=== PATIENT | female | born 1965 | race American Indian/Alaskan Native ===

== ENCOUNTER 2016-11-07 06:59 | Emergency (ER) | payer OTHER, MEDICAID ==
[2016-11-07 07:06] VITALS: BP 135/77; PULSE 98; RESP 18; TEMP 98.2; O2SAT 96
--- NOTE | 2016-11-07 07:37 | EDPHY ---
H & P Time Seen by Provider: 11/07/16 07:14 HPI/ROS: CHIEF COMPLAINT: Right lower extremity swelling HISTORY OF PRESENT ILLNESS: 51-year-old female with a history of clotting disorder presents with right lower extremity swelling. She noticed erythema and tenderness on the anterior aspect of her right lower leg yesterday. Recently she has had frequent superficial thrombophlebitis. History DVT in the past; previously took Coumadin for 4 years. No anticoagulants now. REVIEW OF SYSTEMS: Constitutional: No fever, no chills Eyes: No visual changes ENT: No sore throat Respiratory: No cough, no shortness of breath Cardiac: No chest pain Gastrointestinal: No nausea, no vomiting, no abdominal pain Genitourinary: No hematuria, no dysuria Skin: No rash Neurological: No headache, no numbness, no weakness Psychiatric: Anxiety Past Medical/Surgical History: Clotting disorder DVT Anxiety Social History: Smoking Status: Current every day smoker Physical Exam: General Appearance: Alert, quite anxious Eyes: Pupils equal and round, no conjunctival pallor ENT, Mouth: Mucous membranes moist Neck: Normal inspection Respiratory: Lungs are clear to auscultation Cardiovascular: Regular rate and rhythm Gastrointestinal: Abdomen is soft and nontender Neurological: A&O, nonfocal, normal gait Skin: Warm and dry Extremities: right lower extremity-multiple varicosities, on the anterior aspect of the mid leg, there is a 2 cm linear area of erythema and tenderness, mild calf tenderness, which the patient states is chronic Psychiatric: Anxious Constitutional: Initial Vital Signs Temperature (C) 36.8 C 11/07/16 07:03 Heart Rate 98 11/07/16 07:03 Respiratory Rate 18 11/07/16 07:03 Blood Pressure 135/77 H 11/07/16 07:03 O2 Sat (%) 96 11/07/16 07:03 O2 Delivery Mode Room Air Allergies/Adverse Reactions: No Known Allergies Allergy (Verified 11/07/16 07:01) Home Medications: Medication Instructions Recorded NK [No Known Home Meds] 11/07/16 Medical Decision Making ED Course/Re-evaluation: This patient left prior to getting the right lower extremity ultrasound. The ED RN called the patient and we both talked with the pt. She decided that she did not need the ultrasound. I encouraged her to return to the emergency department for evaluation at any time. Departure - Departure Disposition: Home, Routine, Self-Care Clinical Impression: Superficial thrombophlebitis Qualifiers: Superficial thrombophlebitis-Involved body area: lower extremity Laterality: right Qualified Code(s): I80.01 - Phlebitis and thrombophlebitis of superficial vessels of right lower extremity Condition: Good Referrals: Pattie Bettencourt MD [Primary Care Provider] - As per Instructions
== END 2016-11-07 07:30 | disposition home or self-care (01) ==
DX: I80.01 Phlebitis and thrombophlebitis of superficial vessels of right lower extremity (principal); F17.200 Nicotine dependence, unspecified, uncomplicated; Z86.718 Personal history of other venous thrombosis and embolism

== ENCOUNTER 2017-10-09 14:37 | Emergency (ER) | payer OTHER, MEDICAID ==
[2017-10-09 14:43] VITALS: BP 126/74; PULSE 95; RESP 20; TEMP 98.6; O2SAT 95
== END 2017-10-09 15:08 | disposition left against medical advice (07) ==
DX: Z53.21 Procedure and treatment not carried out due to patient leaving prior to being seen by health care provider (principal)

== ENCOUNTER → 2017-12-17 | Outpatient (CLI) | payer OTHER, MEDICAID | LOC: FIMAGING 19:03 | DX: M47.893 Other spondylosis, cervicothoracic region (principal); M48.02 Spinal stenosis, cervical region; M53.83 Other specified dorsopathies, cervicothoracic region; M47.896 Other spondylosis, lumbar region; M53.87 Other specified dorsopathies, lumbosacral region ==

== ENCOUNTER 2018-09-19 02:17 | Observation (INO) | payer OTHER, MEDICAID ==
[2018-09-19] MEDS ORDERED: IPRATROPIUM/ALBUTEROL 3 ML DEYVIAL IH ONE (02:43)
[2018-09-19] MEDS ORDERED: NS 1,000 ML IV ONE (04:10)
[2018-09-19] MEDS ORDERED: LIDOCAINE 4% 5 ML AMP IH ONE (04:10)
[2018-09-19] MEDS ORDERED: IOPAMIDOL (ISOVUE 370) 100 ML BTL IV ONE (04:15)
[2018-09-19] MEDS ORDERED: LIDOCAINE HCL 4% TOPICAL SOLN 50ML ONE (04:30)
[2018-09-19] MEDS ORDERED: LORazepam 2 MG/ML INJ IVP ONE (04:43)
[2018-09-19] MEDS ORDERED: methylPREDNISolone SOD SUCC 125 MG/2 ML VIAL IVP ONE (05:05)
--- NOTE | 2018-09-19 05:30 | EDPHY ---
H & P Stated Complaint: difficulty breathing, rash all over Time Seen by Provider: 09/19/18 03:52 HPI/ROS: HPI The patient presents with dry cough which has been present for the last 5 days which started slowly and has gotten progressively worse and is dry and hacking. This is caused her to lose her voice. When she walks at all, she feels short of breath. She does not have a fever. She does not have any chest pain. She reports decreased p.o. Intake over the last 1 week. She does not have a sore throat. She did not have a flu vaccine this year. She is a 1 pack per day cigarette smoker. She reports a history of some sort of lung cancer which was cured by natural treatments about 2 years ago. She reports a rash on her arms, legs, buttocks which she relates to her cough. REVIEW OF SYSTEMS 10 systems were reviewed and negative with the exception of the elements mentioned in the history of present illness. 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, chronic depression, ADD, chronic pain, Klippel-Trenaunay syndrome Soc Hx: 1 pack per day cigarette smoker, here with her boyfriend PHYSICAL General Appearance: Alert, no distress, voice is hoarse Eyes: Pupils equal and round no pallor or injection ENT, Mouth: Mucous membranes moist Respiratory: Hacking continuous cough, There are no retractions, lungs are clear to auscultation Cardiovascular: Regular rate and rhythm Gastrointestinal: Abdomen is soft and non-tender, no masses, bowel sounds normal Neurological: A&O, moves all extremities Skin: Warm and dry, buttocks, upper back, arms, posterior surfaces of legs have diffusely erythematous dry rash Musculoskeletal: Neck is supple non tender Extremities: symmetrical, full range of motion Psychiatric: Patient is oriented X 3, there is no agitation Source: Patient Exam Limitations: No limitations - Personal History LMP (Females 10-55): Unknown Current Tetanus/Diphtheria Vaccine: Yes Tetanus Vaccine Date: 2006 - Medical/Surgical History Hx Asthma: No Hx Chronic Respiratory Disease: No Hx Diabetes: No Hx Cardiac Disease: No Hx Renal Disease: No Hx Cirrhosis: No Hx Alcoholism: No Hx HIV/AIDS: No Hx Splenectomy or Spleen Trauma: No Other PMH: KLIPPEL TRENAUNAY SHERON SYNDROME, BILIARY BYPASS, PANCRETITIS, 19 ENDOSCOPYS ? PER PT, CVA, NM, PE, Sissy, Knee surg, L hip replacement x 2, cspine surg - Social History Smoking Status: Current every day smoker Constitutional: Initial Vital Signs Temperature (C) 36.9 C 09/19/18 02:32 Heart Rate 93 09/19/18 02:32 Respiratory Rate 24 H 09/19/18 02:32 Blood Pressure 120/91 H 09/19/18 02:32 O2 Sat (%) 97 09/19/18 02:32 O2 Delivery Mode Room Air Allergies/Adverse Reactions: No Known Allergies Allergy (Verified 10/09/17 14:41) Home Medications: Medication Instructions Recorded NK [No Known Home Meds] 11/07/16 Medical Decision Making - Diagnostics Imaging Results: CT chest with IV contrast demonstrates multifocal ground-glass infiltrates bilaterally with upper lobe predominance, mild bronchiectasis, consider acute interstitial pneumonia, interpreted by direct radiology Chest x-ray two view shows bilateral infiltrates, interpreted by me, radiology interpretation is pending. Differential Diagnosis: 52-year-old female with multiple medical problems including Klippel-Trenaunay syndrome, reported history of adenocarcinoma of the lungs treated with natural therapies, laryngeal tumor status post treatment with chemotherapy, chronic pain , chronic depression and attention deficit hyperactivity disorder presents from home with 5 days of progressive cough associated with shortness of breath. Here , her pulse ox is normal that she has a severe dry cough which is hacking. She is occasionally short of breath in the room. Chest x-ray is performed and demonstrates bilateral infiltrates. Labs are generally unremarkable. Patient is given IV fluids per her request. Given chest x-ray findings, I have ordered CT scan of her chest for further delineation of these infiltrates. It appears that she may have acute interstitial pneumonia. Because of this I will treat her with Solu-Medrol, antibiotics. Basic labs are unremarkable. I plan to admit her to the hospitalist service. I have discussed the case with Dr. Alan. - Data Points Laboratory Results: Laboratory Results 09/19/18 03:10 09/19/18 03:10 09/19/18 09/19/18 09/19/18 04:00 03:10 03:10 WBC REJ RBC REJ Hgb REJ Hct REJ MCV REJ MCH REJ MCHC REJ RDW REJ Plt Count REJ MPV REJ Neut % (Auto) REJ Lymph % (Auto) REJ [place] % (Auto) REJ Eos % (Auto) REJ Baso % (Auto) REJ Nucleat RBC Rel Count REJ Absolute Neuts (auto) REJ Absolute Lymphs (auto) REJ Absolute Monos (auto) REJ Absolute Eos (auto) REJ Absolute Basos (auto) REJ Absolute Nucleated RBC REJ Immature Gran % REJ Immature Gran # REJ Sodium 134 mEq/L L mEq/L (135-145) Potassium 3.3 mEq/L L mEq/L (3.5-5.2) Chloride 100 mEq/L mEq/L (97-110) Carbon Dioxide 22 mEq/l mEq/l (22-31) Anion Gap 12 mEq/L mEq/L (6-14) BUN 24 mg/dL H mg/dL (7-23) Creatinine 0.8 mg/dL mg/dL (0.6-1.0) Estimated GFR > 60 Glucose 115 mg/dL H mg/dL (70-100) Calcium 8.5 mg/dL mg/dL (8.5-10.4) Nasal Influenza A PCR Pending Nasal Influenza B PCR Pending RSV (PCR) Pending Medications Given: Discontinued Medications Albuterol/Ipratropium (Duoneb) 3 ml IH EDNOW ONE Stop: 09/19/18 02:44 Last Admin: 09/19/18 03:05 Dose: 3 ml Sodium Chloride (Ns) 1,000 mls @ 0 mls/hr IV EDNOW ONE; Wide Open PRN Reason: Protocol Stop: 09/19/18 04:11 Last Admin: 09/19/18 04:33 Dose: 1,000 mls Lidocaine HCl (Lidocaine Hcl 4%) 100 mg IH EDNOW ONE Stop: 09/19/18 04:11 Last Admin: 09/19/18 04:37 Dose: 100 mg Lorazepam (Ativan Injection) 0.5 mg IVP ONCE ONE Stop: 09/19/18 04:44 Last Admin: 09/19/18 04:47 Dose: 0.5 mg Methylprednisolone Sodium Succinate (Solu-Medrol) 125 mg IVP EDNOW ONE Stop: 09/19/18 05:06 Last Admin: 09/19/18 05:23 Dose: 125 mg Departure - Departure Disposition: [facility] Clinical Impression: Acute interstitial pneumonia Condition: Fair Referrals: Patient,NotPresent [Primary Care Provider] - As per Instructions
[2018-09-19] MEDS ORDERED: AZITHROMYCIN 250 MG TAB PO ONE (05:32)
[2018-09-19] MEDS ORDERED: ALBUTEROL 3 ML DEYVIAL IH PRN (06:12)
[2018-09-19] MEDS ORDERED: ONDANSETRON DISINTEGRATING 4 MG TAB PO PRN (06:12)
[2018-09-19] MEDS ORDERED: ONDANSETRON 4 MG/2 ML VIAL IVP PRN (06:12)
[2018-09-19] MEDS ORDERED: BENZONATATE 100 MG CAP PO PRN (06:18)
--- NOTE | 2018-09-19 06:47 | PDGENHP ---
History and Physical - Chief Complaint Cough, SOB - History of Present Illness 52 yo F w/ Klippel-Trenaunay syndrome presents with cough and shortness of breath. The patient tells me she has had a new cough over the last 5 days. The cough is severe and unrelenting, but unproductive. She denies fevers and chills. She smokes 1 pack of cigarettes per day and has done so for 40 years. She denies hx of COPD or asthma. She tells me she was diagnosed with lung cancer several years ago via CT scan but was never treated. In the ED a CT scan of her chest is negative for PE but demonstrates bilateral, multifocal ground- glass opacities. She is not hypoxic or febrile. She is being admitted as she is severely symptomatic from her cough. Case discussed with ED physician Dr. Barragan; records reviewed and summarized above. History Information - Allergies/Home Medication List Allergies/Adverse Reactions: No Known Allergies Allergy (Verified 10/09/17 14:41) Home Medications: NK [No Known Home Meds] 11/07/16 [Last Taken Unknown] I have personally reviewed and updated: family history, medical history - Past Medical History Additional medical history: Klippel-Trenaunay syndrome - Surgical History Reports: cholecystectomy Additional surgical history: Multiple orthopedic surgeries - Family History Positive for: cancer (Lung cancer) - Social History Smoking Status: Current every day smoker Review of Systems Review of Systems: ROS: 10pt was reviewed & negative except for what was stated in HPI & below Physical Exam Physical Exam: Temp Pulse Resp BP Pulse Ox 36.9 C 97 22 H 124/65 H 95 09/19/18 04:30 09/19/18 06:20 09/19/18 06:20 09/19/18 06:20 09/19/18 06:20 Constitutional: uncomfortable, unkempt Eyes: PERRL, EOMI Ears, Nose, Mouth, Throat: moist mucous membranes, no oral mucosal ulcers Cardiovascular: regular rate and rhythym, no murmur, rub, or gallop Respiratory: no respiratory distress, reduced air movement, inspiratory crackles Gastrointestinal: normoactive bowel sounds, soft, non-tender abdomen Skin: warm, other (Port wine stains LE's, erythematous rash knees and buttocks) Musculoskeletal: full muscle strength, no muscle tenderness Neurologic: AAOx3, CN II-XII Intact Psychiatric: interacting appropriately, not anxious Lab Data & Imaging Review 09/19/18 05:55 09/19/18 03:10 WBC REJ 09/19/18 03:10 RBC REJ 09/19/18 03:10 Hgb REJ 09/19/18 03:10 Hct REJ 09/19/18 03:10 MCV REJ 09/19/18 03:10 MCH REJ 09/19/18 03:10 MCHC REJ 09/19/18 03:10 RDW REJ 09/19/18 03:10 Plt Count REJ 09/19/18 03:10 MPV REJ 09/19/18 03:10 Neut % (Auto) REJ 09/19/18 03:10 Lymph % (Auto) REJ 09/19/18 03:10 [place] % (Auto) REJ 09/19/18 03:10 Eos % (Auto) REJ 09/19/18 03:10 Baso % (Auto) REJ 09/19/18 03:10 Nucleat RBC Rel Count REJ 09/19/18 03:10 Absolute Neuts (auto) REJ 09/19/18 03:10 Absolute Lymphs (auto) REJ 09/19/18 03:10 Absolute Monos (auto) REJ 09/19/18 03:10 Absolute Eos (auto) REJ 09/19/18 03:10 Absolute Basos (auto) REJ 09/19/18 03:10 Absolute Nucleated RBC REJ 09/19/18 03:10 Immature Gran % REJ 09/19/18 03:10 Immature Gran # REJ 09/19/18 03:10 Sodium 134 mEq/L (135-145) L 09/19/18 03:10 Potassium 3.3 mEq/L (3.5-5.2) L 09/19/18 03:10 Chloride 100 mEq/L (97-110) 09/19/18 03:10 Carbon Dioxide 22 mEq/l (22-31) 09/19/18 03:10 Anion Gap 12 mEq/L (6-14) 09/19/18 03:10 BUN 24 mg/dL (7-23) H 09/19/18 03:10 Creatinine 0.8 mg/dL (0.6-1.0) 09/19/18 03:10 Estimated GFR > 60 09/19/18 03:10 Glucose 115 mg/dL (70-100) H 09/19/18 03:10 Calcium 8.5 mg/dL (8.5-10.4) 09/19/18 03:10 Nasal Influenza A PCR NEGATIVE FOR FLU A (NEGATIVE) 09/19/18 04:00 Nasal Influenza B PCR NEGATIVE FOR FLU B (NEGATIVE) 09/19/18 04:00 RSV (PCR) NEGATIVE FOR RSV (NEGATIVE) 09/19/18 04:00 Imaging Review: 1. CT Prelim: bilateral, multifocal ground glass opacities Assessment & Plan Assessment: 52 yo F w/ hx of Klippel-Trenaunay syndrome presents with cough and SOB. Plan: 1. Cough, shortness of breath - Unclear etiology; CT (personally reviewed/ interpreted) demonstrates bilateral, multifocal ground-glass opacities of unclear etiology. She is a heavy smoker (40+ pack years). She denies infectious symptoms such as fever/chills. CBC not yet available due to several clotted samples. She has no history of COPD and is not wheezing, but may have some contribution from smoking related obstructive disease. - Admit for observation - Will order Respiratory PCR, procalcitonin, BNP - Await CBC results - Trial of prednisone - Duonebs QID + albuterol PRN - Anti-tussives PRN - S/p antibiotics in ED, will hold further CAP coverage for now 2. Groundglass opacities - Unclear etiology, differential is broad (infectious, malignant, autoimmune, idiopathic). Radiology suggests acute interstitial pneumonia in their preliminary report but she is not hypoxic, which would make this unusual. - Infectious work-up w/ RVP, procalcitonin, blood cultures - Check BNP, HIV - May benefit from echocardiogram 3. Klippel-Trenaunay syndrome - With lower extremity port wine stains noted on exam. Diet - Regular Code - Full Ppx - LMWH Dispo - Admit under observation status
[2018-09-19 07:32] LABS: PLATELET COUNT 271 10^3/uL (150-400)
[2018-09-19 08:24] LABS: HIV TYPE 1 AND 2 NEGATIVE (NEGATIVE)
--- NOTE | 2018-09-19 11:49 | HOSPPROG ---
Hospitalist Progress Note Assessment/Plan: Patient new to my care. Presented with productive cough with green sputum. No fever, chills. Had planned on DC, but upon my exam I noted significant erythema , warmth over BL buttocks. She says this has progressed past 2 days. Question hygiene, says she defecates while in shower #Atypical PNA: cont Azithr (Day 1) -ground-glass opacities on CT. Rec repeat imaging outpatient to ensure resolved -pred, Duonebs #Bilateral buttock cellulitis: IV Ancef, outline area for improvement #Hypokalemia: replete #h/o lung cancer: not treated #Klippel -Trenaunay syndrome #Tobacco dependence: blane patch, counseled on cessation #Diet: regular #DVt ppx: Lovenox Direct time spent: 30 min (11:30-12:00) reviewing records, bedside with pt Subjective: productive cough. Objective: Vital Signs Temp Pulse Resp BP Pulse Ox 36.7 C 81 16 105/71 94 09/19/18 08:00 09/19/18 10:18 09/19/18 10:18 09/19/18 08:00 09/19/18 10:18 Laboratory Results 09/19/18 07:15 - Time Spent With Patient Time Spent with Patient: greater than 35 minutes Time Spent with Patient: Greater than 35 minutes spent on this patients care, greater than 50% of time spent counseling, educating, and coordinating care regarding the above mentioned plan. - Physical Exam Constitutional: unkempt Ears, Nose, Mouth, Throat: other (soft spoken voice) Cardiovascular: regular rate and rhythym Respiratory: no respiratory distress Gastrointestinal: normoactive bowel sounds Genitourinary: rodriguez in urethra Skin: other (bilateral buttocks with significant erythema, sloughed skin. No induration or open wounds. Warm) Neurologic: AAOx3, CN II-XII Intact Psychiatric: depressed, flat affect ICD10 Worksheet Patient Problems: Problems Problem Status Onset Acute interstitial pneumonia Acute
[2018-09-19] MEDS ORDERED: predniSONE 20 MG TAB ONE (12:44)
[2018-09-19] MEDS ORDERED: IPRATROPIUM/ALBUTEROL 3 ML DEYVIAL ONE (12:46)
[2018-09-19] MEDS: predniSONE 20 MG TAB PO SCH (12:47)
[2018-09-19] MEDS: IPRATROPIUM/ALBUTEROL 3 ML DEYVIAL IH SCH ×3 (12:47→22:09)
[2018-09-19] MEDS: ACETAMINOPHEN 325 MG TAB PO PRN (14:00)
[2018-09-19] MEDS: GUAIFENESIN/DM 10 ML UDCUP PO PRN ×2 (14:00→23:17)
[2018-09-19] MEDS: ENOXAPARIN 40 MG/0.4 ML SYR SC SCH (14:01)
[2018-09-19] MEDS: ceFAZolin 2 GM/DEXTROSE 100 ML IV SCH ×2 (15:16→22:07)
--- NOTE | 2018-09-19 16:11 | ASMTCMCOM ---
CM Note CM Note Notes: Reviewed chart. Pt presented to the Emergency Department with difficulty breathing and a rash. History includes Klippel-Trenaunay Syndrome, chronic pain, ADD, chronic depression, adenocarcinoma, laryngeal tumor with chemo, biliary bypass, pancreatitis, CVA, AL, PE, richi. Pt is an every day pack per day smoker. She is accompanied by her boyfriend. Pt admitted for further evaluation and treatment of a cough and cellulitis on her buttocks. Discharge needs remain unclear at this time. CM will continue to follow. Discharge Plan: To be determined Date Signed: 09/19/2018 04:11 PM Electronically Signed By:Delicia Ji RN
[2018-09-19] MEDS ORDERED: traZODone 50 MG TAB PO PRN (23:03)
[2018-09-19] MEDS ORDERED: MELATONIN 3 MG TAB PO PRN (23:03)
[2018-09-20] MEDS: ceFAZolin 2 GM/DEXTROSE 100 ML IV SCH ×3 (05:08→22:05)
[2018-09-20] MEDS: IPRATROPIUM/ALBUTEROL 3 ML DEYVIAL IH SCH ×4 (05:55→22:35)
[2018-09-20] MEDS: AZITHROMYCIN 250 MG TAB PO SCH (10:29)
[2018-09-20] MEDS: predniSONE 20 MG TAB PO SCH (10:29)
[2018-09-20] MEDS: ENOXAPARIN 40 MG/0.4 ML SYR SC SCH (10:30)
[2018-09-20] MEDS ORDERED: POTASSIUM CL 20 MEQ TAB PO ONE (13:06)
--- NOTE | 2018-09-20 13:26 | HOSPPROG ---
Hospitalist Progress Note Assessment/Plan: Patient new to my care. Presented with productive cough with green sputum. On room air. Now being treated for buttock cellulitis, suspect skin breaks are portal of entry. Tox screen pos for meth. #Atypical PNA: -cont Azithr (Day 2/) -ground-glass opacities on CT. Rec outpt pulm f/u and repeat imaging to ensure resolved -pred, Duonebs #Bilateral buttock cellulitis: cont IV Ancef, monitor #Meth abuse: may be contributory to above issues #Hypokalemia: replete #h/o lung cancer: by pt report, not treated #Klippel -Trenaunay syndrome - can cause recurrent cellulitis #Tobacco dependence: blane patch, counseled on cessation #Diet: regular #DVt ppx: Lovenox #Dispo: cont inpt for ongoing IV atbx Subjective: Pt is antsy. Breathing is a bit better. Denies itching, but seems to have multiple excoriated areas on wrists and region on right buttocks over cellulitic area. No fevers. Tolerating po well. No N/V. Objective: Vital Signs Temp Pulse Resp BP Pulse Ox 36.8 C 88 18 104/52 L 96 09/20/18 11:45 09/20/18 11:45 09/20/18 11:45 09/20/18 11:45 09/20/18 11:45 Laboratory Results 09/19/18 07:15 09/20/18 11:08 09/19/18 09/20/18 09/21/18 05:59 05:59 06:59 Intake Total 2605 Output Total 1200 Balance 1405 - Physical Exam Constitutional: no apparent distress Eyes: PERRL Ears, Nose, Mouth, Throat: moist mucous membranes Cardiovascular: regular rate and rhythym Respiratory: no respiratory distress, clear to auscultation Gastrointestinal: normoactive bowel sounds, soft, non-tender abdomen Skin: warm, other (buttock erythema reportedly less red, but persists) Neurologic: AAOx3 Psychiatric: interacting appropriately, anxious, poor insight ICD10 Worksheet Patient Problems: Problems Problem Status Onset Acute interstitial pneumonia Acute
--- NOTE | 2018-09-20 16:52 | ASMTCMCOM ---
CM Note CM Note Notes: Pt lives alone and has supportive friends. Pt wondering if she would qualify for help with housekeeping as she has Medicaid. Referral sent to [facility]. PT and TRAIN CONDUCTOR recommending home independent with follow up out patient. No CM needs noted at this time. CM available should needs change. D/C Plan: Home independent with OP TRAIN CONDUCTOR Date Signed: 09/20/2018 04:51 PM Electronically Signed By:Elissa Erickson
[2018-09-20] MEDS: ACETAMINOPHEN 325 MG TAB PO PRN (19:50)
[2018-09-21] MEDS: ceFAZolin 2 GM/DEXTROSE 100 ML IV SCH ×2 (05:02→13:53)
[2018-09-21] MEDS: IPRATROPIUM/ALBUTEROL 3 ML DEYVIAL IH SCH ×3 (05:06→15:04)
[2018-09-21] MEDS ORDERED: PROTOCOL POTASSIUM 1 DOSE MISC PRN (07:40)
[2018-09-21] MEDS: ENOXAPARIN 40 MG/0.4 ML SYR SC SCH (08:29)
[2018-09-21] MEDS: AZITHROMYCIN 250 MG TAB PO SCH (08:29)
[2018-09-21] MEDS: predniSONE 20 MG TAB PO SCH (08:29)
[2018-09-21] MEDS ORDERED: guaiFENesin 600 MG TAB.ER PO SCH (15:00)
[2018-09-21 15:19] VITALS: BP 134/78
--- NOTE | 2018-09-21 15:40 | GDS ---
[f rep st] DISCHARGE SUMMARY DISCHARGE DIAGNOSES: 1. Atypical pneumonia with ground-glass opacities on CT. Recommend outpatient pulmonology followup and repeat imaging. 2. Bilateral buttock cellulitis in the setting of Klippel-Trenaunay syndrome. 3. Methamphetamine abuse. 4. Hypokalemia. 5. History of lung cancer. This is by patient's report without treatment. 6. Tobacco dependence. STUDIES: Chest CT September 19, 2018: Showed patchy ground-glass opacities with upper lobe predominance suggestive of acute interstitial pneumonia, atypical viral pneumonia, in addition mediastinal and hil ar lymphadenopathy were noted, possibly reactive. As above, she needs followup chest imaging and has been referred to pulmonology. HISTORY OF DETAILS: Please see history and physical dated September 19, 2018. In brief, this patient is a 52-year-old female with a history of recurrent cellulitis and methamphetamine abuse who presents to the emergency department with a cough and shortness of breath. Chest imaging was suggestive of an a typical pneumonia and she was admitted to the hospital for further management. HOSPITAL COURSE: The patient was initially treated with ceftriaxone and azithromycin and she will co mplete 2 more days of azithromycin for a total of 1.[address] is abnormal, as described willi springer, and I have referred her to pulmonology, Dr. Yonatan Rush, for review. She is informed she will need followup CT imaging and possibly PET-CT. She has been stable on room air throughout her hospitalization and has also remained afebrile. She h ad a slightly elevated white blood cell count of around 10,000. Influenza was negative. HIV and RSV were also negative. A respiratory viral panel negative. Her urine tox screen was positive for amph etamine and marijuana. This was very concerning to her, as she states she cannot have meth in her sy stem. She does, however, deny IV drug use or smoking methamphetamine. During her hospitalization, she was noted to have a bilateral buttock cellulitis, worse on the right. She was treated with IV Ancef and this did show significant improvement. On the day of discharge, she was transitioned to oral Keflex for 1 more week of therapy. I recommended close followup with he r primary care physician to recheck her cellulitis. On the day of discharge, her potassium was slightly low at 3.1. She was given 40 mEq of oral potassi um and I would ask her primary care physician to recheck her electrolytes within the next few days frandy pritchard her hospital followup appointment. DISPOSITION: Patient is discharged home in stable condition. FOLLOWUP: 1. Dr. Yonatan Rush, Pulmonology, to review her abnormal CT findings and plan for a repeat CT in 3-4 weeks. 2. Primary care physician to recheck her cellulitis. DISCHARGE MEDICATIONS: Please see [facility] for completed outpatient medication list. MEDICATIONS ON DISCHARGE: 1. Include Tylenol 650 p.o. q.4 hours p.r.n. 2. Azithromycin 250 mg p.o. daily, no refills, to complete 1.5 g total treatment course. 3. Mucinex 600 mg p.o. twice daily. 4. Robitussin DM 10 mL p.o. q.4 hours p.r.n. 5. Albuterol inhaler 1-2 puffs inhaled q.4 hours, #1, no refills. 6. Cephalexin 500 mg p.o. t.i.d., #21, no refills. /[id number]/MODL
--- NOTE | 2018-09-21 15:49 | ASMTDCNOTE ---
Case Management Discharge Discharge Order Complete? Answers: No Patient to Obtain Answers: Independently Medications Transportation Arranged Answers: Family/Friends Discharge Comments Notes: CM met with patient prior to discharge, patient states she is confident she can follow up with PCP Dr. Heranndes at [facility]. CM reviewed [facility] referral and recommended she connect with Care Management with [facility]. Patient states a friend will transport her home, she has a van is able to drive to get to her appointments, she does know about and is connected to [employer]/Medicaid Transportation. CM explained and delivered IM and TO, patient signed for receipt and CM placed in back of chart. CM available to follow if any further needs arise. D/C Plan: Home independent. Date Signed: 09/21/2018 03:49 PM Electronically Signed By:Mary Dye
--- NOTE | 2018-09-21 16:42 | ASDISCHSUM ---
Discharge Information Plan Status:Home with No Needs Medically Cleared to Leave: Discharge Date: CM D/C Disposition:Home, Routine, Self-Care ADT D/C Disposition:Home, Routine, Self-Care Projected Discharge Date: Transportation at D/C:Friend Discharge Delay Reason: Follow-Up Date: Discharge Slot: Final Diagnosis:Pneumonia Placement Information Patient Contact Information Contact Name:MITZI Relationship:Talib Address: City:[place] Alternate Phone: State/Zip Code:[place] Email: Financial Information Financial Class:Medicare Primary Plan Desc:MEDICARE INPATIENT Primary Plan Number:[id number] Secondary Plan Desc:[place] Secondary Plan Number:[id number] Assessment Information [facility] CM Progress Note CM Note CM Note Notes: Reviewed chart. Pt presented to the Emergency Department with difficulty breathing and a rash. History includes Klippel-Trenaunay Syndrome, chronic pain, ADD, chronic depression, adenocarcinoma, laryngeal tumor with chemo, biliary bypass, pancreatitis, CVA, NH, PE, richi. Pt is an every day pack per day smoker. She is accompanied by her boyfriend. Pt admitted for further evaluation and treatment of a cough and cellulitis on her buttocks. Discharge needs remain unclear at this time. CM will continue to follow. Discharge Plan: To be determined Date Signed: 09/19/2018 04:11 PM Electronically Signed By:Delicia Ji RN [facility] CM Progress Note CM Note CM Note Notes: Pt lives alone and has supportive friends. Pt wondering if she would qualify for help with housekeeping as she has Medicaid. Referral sent to [facility]. PT and [employer] recommending home independent with follow up out patient. No CM needs noted at this time. CM available should needs change. D/C Plan: Home independent with OP [employer] Date Signed: 09/20/2018 04:51 PM Electronically Signed By:Elissa Erickson Case Management Discharge Plan Note Case Management Discharge Discharge Order Complete? Answers: No Patient to Obtain Answers: Independently Medications Transportation Arranged Answers: Family/Friends Discharge Comments Notes: CM met with patient prior to discharge, patient states she is confident she can follow up with PCP Dr. Hernandes at [facility]. CM reviewed [facility] referral and recommended she connect with Care Management with [facility]. Patient states a friend will transport her home, she has a van is able to drive to get to her appointments, she does know about and is connected to [facility]. CM explained and delivered IM and TO, patient signed for receipt and CM placed in back of chart. CM available to follow if any further needs arise. D/C Plan: Home independent. Date Signed: 09/21/2018 03:49 PM Electronically Signed By:Mary Dye Intervention Information Intervention Type:*Incorrect Registration Date of Service:09/19/2018 05:31 PM Patient Type:Inpatient Staff Member:KIRSTIN Fournier, Tamara Hours: Discipline: Severity: Comment:
== END 2018-09-21 16:42 | disposition home or self-care (01) ==
LOC: INTOOBSV 06:08 → F3E 13:27
PROVIDERS: ADMIT Student in an Organized Health Care Education/Training Program; ATTEND Hospitalist
DX: J18.9 Pneumonia, unspecified organism (principal); L03.317 Cellulitis of buttock; E86.9 Volume depletion, unspecified; R59.0 Localized enlarged lymph nodes; Q87.2 Congenital malformation syndromes predominantly involving limbs; E87.6 Hypokalemia; F17.200 Nicotine dependence, unspecified, uncomplicated; F15.10 Other stimulant abuse, uncomplicated; G89.29 Other chronic pain; F32.9 Major depressive disorder, single episode, unspecified; Z79.2 Long term (current) use of antibiotics; Z85.118 Personal history of other malignant neoplasm of bronchus and lung; Z86.711 Personal history of pulmonary embolism; Z86.718 Personal history of other venous thrombosis and embolism
CPT/HCPCS: 71046; 71260; 92523; 96361; 96365; 96372; 96375; 96376; 97161; 99285; G0378; J0690; J0696; J1650; J2060; J2930; J7512; J7613; Q9967; 80305